=== PATIENT | female | born 1980 | race African-American/Black ===

== ENCOUNTER 2020-07-23 21:28 | Emergency (ER) | payer MEDICAID ==
[~2020-07-23] VITALS: Ht 175.3 cm; Wt 73.0 kg
[2020-07-23] MEDS ORDERED: KETOROLAC 60MG/2ML VIAL IM ONE (22:00)
[2020-07-23] MEDS ORDERED: NAPR-681 MT (22:41)
[2020-07-23 23:15] VITALS: BP 104/51
== END 2020-07-23 23:15 | disposition home or self-care (01) ==
LOC: ER 21:28
DX: M25.572 Pain in left ankle and joints of left foot (principal); M79.18 Myalgia, other site; F41.9 Anxiety disorder, unspecified; W20.8XXA Other cause of strike by thrown, projected or falling object, initial encounter; Y93.89 Activity, other specified; Y92.89 Other specified places as the place of occurrence of the external cause; Z88.0 Allergy status to penicillin; Z88.2 Allergy status to sulfonamides; Z98.890 Other specified postprocedural states
CPT/HCPCS: 29515; 73610; 73630; 81025; 96372; 99284; J1885

== ENCOUNTER 2020-08-20 16:09 | Emergency (ER) | payer MEDICAID ==
[~2020-08-20] VITALS: Ht 175.3 cm; Wt 75.0 kg
[~2020-08-20 16:09] MED LIST: NAPR-681 MT
[2020-08-20 17:04] LABS: BASOPHILS % 0.5 % (0.0-2.0); EOSINOPHILS % 1.6 % (0.0-5.0); HEMATOCRIT. 34.6 % (36.0-48.0); HEMOGLOBIN. 11.7 g/dL (12.0-16.0); LYMPHOCYTES % 42.1 % (20.0-50.0); MEAN CORPUSCULAR HEMOGLOBIN 29.6 pg (28.0-32.0); MEAN CORPUSCULAR VOLUME 87.7 fL (81.0-99.0); MEAN PLATELET VOLUME 9.2 fl (7.4-10.4); NEUTROPHILS % 49.8 % (40.0-76.0); PLATELET 155 x1000/uL (130-400); RED BLOOD CELL COUNT 3.94 mill/uL (4.2-5.4); RED CELL DISTRIBUTION WIDTH 12.6 % (11.6-14.6)
[2020-08-20 17:13] LABS: CHLORIDE 108 mEq/L (98-107)
[2020-08-20 18:10] LABS: HCG SCREEN NEGATIVE
[2020-08-20] MEDS ORDERED: NITROGLYCERIN OINT 1GM/INCH UDPKT TD ONE (18:15)
[2020-08-20] MEDS ORDERED: ASPIRIN 81MG TABLET PO ONE (18:15)
[2020-08-20] MEDS ORDERED: IBUP-2028 MT (19:29)
[2020-08-20 20:40] VITALS: BP 111/64
[2020-08-20] MEDS ORDERED: MAGNESIUM/ALUMINUM HYDROXIDE/SIMETHICONE 30ML UDC PO ONE (20:45)
== END 2020-08-20 20:41 | disposition home or self-care (01) ==
LOC: ER 16:09
DX: R07.89 Other chest pain (principal); F41.9 Anxiety disorder, unspecified; Z98.890 Other specified postprocedural states; Z97.5 Presence of (intrauterine) contraceptive device; Z88.2 Allergy status to sulfonamides; Z88.0 Allergy status to penicillin
CPT/HCPCS: 36415; 71045; 80053; 83880; 84484; 84703; 85025; 93005; 99285; Z7610

== ENCOUNTER 2020-09-05 11:33 | Emergency (ER) | payer MEDICAID ==
[~2020-09-05] VITALS: Ht 175.3 cm; Wt 75.6 kg
[~2020-09-05 11:33] MED LIST changes: +IBUP-2028 MT
[2020-09-05 11:36] VITALS: BP 110/65
[2020-09-05 12:24] LABS: CLARITY URINE CLEAR (CLEAR); COLOR URINE YELLOW (YELLOW); KETONES URINE NEGATIVE (NEGATIVE); LEUKOCYTE ESTERASE URINE NEGATIVE (NEGATIVE); NITRITE URINE NEGATIVE (NEGATIVE); OCCULT BLOOD URINE NEGATIVE (NEGATIVE); PH URINE 7.5 (4.5-8.0); PROTEIN URINE NEGATIVE (NEGATIVE); SPECIFIC GRAVITY URINE 1.015 (1.005-1.030)
[2020-09-05] MEDS ORDERED: AZITHROMYCIN 500 MG TABLET PO ONE (13:00)
[2020-09-05] MEDS ORDERED: CEFTRIAXONE SODIUM 500 MG/VIAL IM ONE (13:00)
[2020-09-05] MEDS ORDERED: LIDOCAINE HCL 1% 20ML VIAL (Pyxis) INJ INFIL ONE (13:00)
[2020-09-07 04:07] LABS: NEISSERIA GONORRHOEAE NAA Negative (Negative)
== END 2020-09-05 13:15 | disposition home or self-care (01) ==
LOC: ER 11:33
DX: Z20.2 Contact with and (suspected) exposure to infections with a predominantly sexual mode of transmission (principal); R30.0 Dysuria; F41.9 Anxiety disorder, unspecified; Z98.890 Other specified postprocedural states; Z88.2 Allergy status to sulfonamides; Z88.0 Allergy status to penicillin
CPT/HCPCS: 81003; 81025; 87210; 87491; 87591; 96372; 99283; J0696; J3490

== ENCOUNTER 2020-09-21 13:40 | Emergency (ER) | payer MEDICAID ==
[~2020-09-21] VITALS: Ht 175.3 cm; Wt 73.6 kg
[2020-09-21] MEDS ORDERED: SODIUM CHLORIDE 0.9% 1,000 ML IV ONE (14:15)
[2020-09-21 15:27] LABS: BASOPHILS % 0.5 % (0.0-2.0); EOSINOPHILS % 0.9 % (0.0-5.0); HEMATOCRIT. 35.7 % (36.0-48.0); HEMOGLOBIN. 12.3 g/dL (12.0-16.0); LYMPHOCYTES % 37.4 % (20.0-50.0); MEAN CORPUSCULAR HEMOGLOBIN 29.3 pg (28.0-32.0); MEAN CORPUSCULAR VOLUME 85.3 fL (81.0-99.0); MONOCYTES % 5.6 % (2.0-8.0); NEUTROPHILS % 55.6 % (40.0-76.0); PLATELET 176 x1000/uL (130-400); RED BLOOD CELL COUNT 4.19 mill/uL (4.2-5.4); RED CELL DISTRIBUTION WIDTH 12.5 % (11.6-14.6)
[2020-09-21 15:29] LABS: CLARITY URINE CLEAR (CLEAR); COLOR URINE YELLOW (YELLOW); KETONES URINE TRACE (NEGATIVE); LEUKOCYTE ESTERASE URINE NEGATIVE (NEGATIVE); NITRITE URINE NEGATIVE (NEGATIVE); OCCULT BLOOD URINE NEGATIVE (NEGATIVE); PH URINE 6.5 (4.5-8.0); PROTEIN URINE NEGATIVE (NEGATIVE); SPECIFIC GRAVITY URINE 1.027 (1.005-1.030)
[2020-09-21 15:30] LABS: CHLORIDE 109 mEq/L (98-107)
[2020-09-21 15:41] LABS: B-HCG QUANTITATIVE < 1 mIU/mL (<3)
[2020-09-21] MEDS ORDERED: IBUP-2028 MT (16:12)
[2020-09-21 16:53] VITALS: BP 105/60
== END 2020-09-21 16:54 | disposition home or self-care (01) ==
LOC: ER 13:40
DX: N92.0 Excessive and frequent menstruation with regular cycle (principal); D25.9 Leiomyoma of uterus, unspecified; F41.9 Anxiety disorder, unspecified; Z97.5 Presence of (intrauterine) contraceptive device; Z98.890 Other specified postprocedural states; Z88.2 Allergy status to sulfonamides; Z88.0 Allergy status to penicillin
CPT/HCPCS: 36415; 76830; 76856; 80053; 81003; 81025; 84443; 84702; 85025; 93005; 96360; 96361; 99285; J7030